=== PATIENT | male | born 1945 | race Caucasian/White ===

== ENCOUNTER 2016-07-13 13:42 | Inpatient (IN) | payer MEDICARE, OTHER ==
[2016-07-13] MEDS ORDERED: NS 0.9% 1000 ML* 1,000 ML IV ONE (14:16)
[2016-07-13 14:27] LABS: Hematocrit 40 % (42-52); Hemoglobin 12.9 g/dl (14.0-18.0); Mean Corpuscular HGB Conc 33 g/dl (31-36); Mean Corpuscular Hemoglobin 29 pg (27-31); Mean Corpuscular Volume 89 fL (80-94); Mean Platelet Volume 7 um3 (7.4-10.4); Red Blood Count 4.43 10^6/ul (4.0-5.4); Red Cell Distribution Width 14 % (10.5-15); White Blood Count 19.9 10^3/ul (3.5-10.8)
[2016-07-13 14:44] LABS: ALT 15 U/L (7-52); Albumin 3.4 g/dL (3.2-5.2); Alkaline Phosphatase 64 U/L (34-104); BUN/Creatinine Ratio 22.2 (8-20); Blood Urea Nitrogen 32 mg/dL (6-24); CO2 Carbon Dioxide 22 mmol/L (22-32); Calcium 8.7 mg/dL (8.6-10.3); Chloride 101 mmol/L (101-111); EGFR African American 62.2 (>60); EGFR Non-African American 48.4 (>60); Globulin 3.3 g/dL (2-4); Glucose 140 mg/dL (70-100); Lipase 13 U/L (11.0-82.0); Sodium 129 mmol/L (133-145); Total Protein 6.7 g/dL (6.4-8.9)
[2016-07-13] MEDS ORDERED: Ciprofloxacin 400MG IVPREMIX(* 400 MG/200 ML BAG IVPB ONE (15:01)
--- NOTE | 2016-07-13 15:02 | RAD ---
Indication: Weakness. Exposure to illness at living facility. Cardiovascular disease. Comparison: June 06, 2015 Technique: Upright AP 1435 hours Report: Clear lungs and pleural spaces. The heart, pulmonary vasculature, and mediastinal contours are unremarkable. Unremarkable osseous structures and soft tissue contours. IMPRESSION: No evidence for pneumonia. No evidence for acute intrathoracic disease.
--- NOTE | 2016-07-13 15:03 | ED ---
Paul Rae Matthew, scribed for Ezekiel Aguirre MD on 07/13/16 at 1413 . GI/ HPI - HPI Summary HPI Summary: A 71 y/o male presents to the ED by EMS from [facility] with constant nausea and vomiting (x1 today) since two days ago. Associated symptoms include dizziness - since resolved, diarrhea, shakiness, and generalized weakness. The patient denies fever. He states that a person at his dinning table vomitied a few days ago. He has a Hx of MS, which results in left leg loss of sensation. Denies trouble feeling pain anywhere other than the left leg. The patient uses a walker; however, the patient was too weak to walk today. His MS has not worsened today. - History of Current Complaint Chief Complaint: EDNauseaVomitDiarrh Time Seen by Provider: 07/13/16 13:52 Stated Complaint: WEAKNESS Hx Obtained From: Patient Onset/Duration: Started Days Ago, Atraumatic, Still Present Timing: Constant Severity: Moderate Current Severity: Moderate Associated Signs and Symptoms: Positive: Dizziness, Weakness - generalized, Nausea, Vomiting, Diarrhea. Negative: Fever - Allergy/Home Medications Allergies/Adverse Reactions: Allergies Allergy/AdvReac Type Severity Reaction Status Date / Time No Known Allergies Allergy Verified 01/16/15 17:02 PMH/Surg Hx/FS Hx/Imm Hx Endocrine/Hematology History: Reports: Hx Thyroid Disease Denies: Hx Anticoagulant Therapy, Hx Diabetes Cardiovascular History: Reports: Hx Hypertension, Other Cardiovascular Problems/ Disorders - current c/o heartburn Denies: Hx Congestive Heart Failure, Hx Pacemaker/ICD Respiratory History: Denies: Hx Asthma, Hx Chronic Obstructive Pulmonary Disease (COPD), Other Respiratory Problems/Disorders GI History: Reports: Hx Gastroesophageal Reflux Disease Denies: Hx Ulcer, Other GI Disorders - DENIES History: Reports: Hx Benign Prostatic Hyperplasia, Other Problems/ Disorders - blood in urine Denies: Hx Renal Disease Musculoskeletal History: Reports: Hx Arthritis, Other Musculoskeletal History - Multiple Sclerosis Sensory History: Reports: Hx Contacts or Glasses Opthamlomology History: Reports: Hx Contacts or Glasses Neurological History: Reports: Hx Dementia, Other Neuro Impairments/Disorders - Multiple sclerosis - Immunization History Date of Tetanus Vaccine: <10yrs Date of Influenza Vaccine: 2014 Infectious Disease History: No Infectious Disease History: Denies: Hx Clostridium Difficile, Hx Hepatitis, Hx Human Immunodeficiency Virus (HIV), Hx of Known/Suspected MRSA, Traveled Outside the [place] in Last 30 Days - Family History Known Family History: Negative: Cardiac Disease, Hypertension, Diabetes - Social History Alcohol Use: None Substance Use Type: Reports: None Smoking Status (MU): Never Smoked Tobacco Review of Systems Constitutional: Negative Negative: Fever Eyes: Negative ENT: Negative Cardiovascular: Negative Respiratory: Negative Positive: Vomiting, Diarrhea, Nausea Genitourinary: Negative Musculoskeletal: Negative Skin: Negative Neurological: Other - Dizziness Positive: Weakness - generalized Psychological: Normal All Other Systems Reviewed And Are Negative: Yes Physical Exam Triage Information Reviewed: Yes Vital Signs On Initial Exam: Initial Vitals Temp Pulse Resp BP Pulse Ox 97.8 F 108 16 86/65 97 07/13/16 13:43 07/13/16 13:43 07/13/16 13:43 07/13/16 13:43 07/13/16 13:43 Vital Signs Reviewed: Yes Appearance: Positive: Well-Appearing, No Pain Distress Skin: Positive: Warm, Skin Color Reflects Adequate Perfusion Head/Face: Positive: Normal Head/Face Inspection Eyes: Positive: Normal, EOMI ENT: Positive: Other - mucous membranes are dry Neck: Positive: Supple Respiratory/Lung Sounds: Positive: Clear to Auscultation, Breath Sounds Present , Decreased Breath Sounds Cardiovascular: Positive: Normal, RRR. Negative: Murmur Abdomen Description: Positive: Nontender Musculoskeletal: Positive: Normal, Strength/ROM Intact Neurological: Positive: Alert, Oriented to Person Place, Time, Other - left leg weak which is chronic for him with his MS Psychiatric: Positive: Normal - Trent Coma Scale Coma Scale Total: 15 Diagnostics - Vital Signs Vital Signs Temp Pulse Resp BP Pulse Ox 07/13/16 13:43 97.8 F 108 16 86/65 97 - Laboratory Result Diagrams: 07/13/16 14:20 07/13/16 14:20 Lab Statement: Any lab studies that have been ordered have been reviewed, and results considered in the medical decision making process. - Radiology chest xray NAD Xray Interpretation: No Acute Changes Radiology Interpretation Completed By: ED Physician - EKG 14:27 Cardiac Rate: Tachycardia - 100 EKG Rhythm: Sinus Tachycardia EKG Interpretation: Diffus ST elevations EKG Comparison: No Significant Change - 09/20/2014 GIGU Course/Dx - Course Course Of Treatment: 71 yr old with MS, and NVD today with ill exposure to other residents at the place he lives. UTI, - Diagnoses Provider Diagnoses: UTI (urinary tract infection), Vomiting and diarrhea - Physician Notifications Discussed Care Of Patient With: Dr Perez Roldan Instructed by Provider To: Admit As Inpatient Discharge - Discharge Plan Condition: Good Disposition: ADMITTED TO [facility] The documentation as recorded by the Paul hodges Matthew accurately reflects the service I personally performed and the decisions made by , Ezekiel Aguirre MD.
[2016-07-13 15:32] LABS: Magnesium 1.6 mg/dL (1.9-2.7)
[2016-07-13] MEDS ORDERED: Magnesium Sulfate 2 GM IV* 2 GM/50 ML BAG IVPB ONE (17:00)
[2016-07-13] MEDS ORDERED: NS 0.9% 1000 ML* 1,000 ML IV SCH (17:30)
[2016-07-13] MEDS ORDERED: Ondansetron INJ* 2 MG/ML VIAL IV PRN (18:02)
[2016-07-13] MEDS: NS 0.9% 1000 ML* 1,000 ML IV SCH (18:06)
[2016-07-13] MEDS ORDERED: diPHENhydraMINE PO* 25 MG PO PRN (19:08)
[2016-07-13] MEDS ORDERED: Magnesium Hydroxide LIQ* 30 ML UDC PO PRN (19:08)
[2016-07-13] MEDS ORDERED: Acetaminophen TAB* 325 MG PO PRN (19:08)
[2016-07-13] MEDS ORDERED: Cyclobenzaprine TAB* 10 MG PO PRN (19:08)
[2016-07-13] MEDS: Heparin VIAL(*) 5000 UNITS/ML VIAL (FIVE THOUSAND) SUBCUT SCH (21:42)
--- NOTE | 2016-07-14 00:06 | HP ---
HISTORY AND PHYSICAL: DATE OF ADMISSION: 07/13/16 PRIMARY CARE PROVIDER: Dr. Mathias. NEUROLOGIST: Dr. Mcconnell. CHIEF COMPLAINT: Nausea, vomiting, and dizziness. HISTORY OF PRESENT ILLNESS: Mr. Pimentel is a 71-year-old male who states that just a short period of time prior to presenting to the emergency room, he began to have profuse vomiting. The patient states that it was almost continuous vomiting and because of this, he presented to the ER. The patient felt nauseous with this. He, however, did not have any abdominal pain. He denied any diarrhea, but states in the ambulance on the way over to [facility], he had a solid bowel movement. The patient does note that immediately following the vomiting, he felt somewhat dizzy. Currently, the nausea, vomiting, and dizziness have completely resolved. The patient does state that he has a sick contact. His tablemate at [facility] had recent nausea and vomiting. The patient states that he fell hot earlier in the day, but denies any fevers, chills otherwise. He denies any anorexia. No chest pain, no palpitations, no edema. No cough, no shortness of breath. No hematochezia, no hematuria, no dysuria. He states that he has chronic left-sided weakness. No sudden changes in vision. No dysphagia. No joint pains or muscles pain out of the ordinary. No rashes. No anxiety or depression. PAST MEDICAL HISTORY: 1. Multiple sclerosis. 2. Hypertension. 3. BPH. 4. Hypothyroidism. PAST SURGICAL HISTORY: None. MEDICATIONS: Accurate list pending, faxed from [facility]. ALLERGIES: None. FAMILY HISTORY: Mom at the age of 82, he believes with dementia. Dad likely in his 70s, though cause of was unknown. SOCIAL HISTORY: The patient is a lifelong nonsmoker. He does not drink alcohol. 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 He is . He has 2 children. He currently indicates that his girlfriend, Alexus Fraser, would be his healthcare proxy. REVIEW OF SYSTEMS: As per HPI. PHYSICAL EXAMINATION GENERAL: The patient is a well-developed, elderly, thin male, sitting up in the bed, in no acute distress. VITAL SIGNS: Blood pressure 122/77, pulse 97, respirations 20, temp 98, O2 sat 100% on 2 L. HEENT: Pupils are equal. They are round. Extraocular muscles are intact. Oropharynx is clear. Oral mucosa is moist. There is no submandibular, cervical , or supraclavicular adenopathy. Thyroid is not enlarged. No thyroid nodules are noted. PULMONARY: Lungs are clear to auscultation bilaterally. CARDIAC: Normal S1, S2. Regular rate and rhythm. I do not appreciate any murmurs. There is no lower extremity edema. ABDOMEN: Bowel sounds present. Soft, nontender, nondistended. MUSCULOSKELETAL: There is no cyanosis or clubbing of the digits. SKIN: Warm and dry. There are no rashes. NEUROLOGIC: Cranial nerves II through XII are grossly intact. Sensation is intact to light touch throughout. Strength is 5/5 in the right upper extremity and right lower extremity, 4 to 4+/5 in the left upper and lower extremity. PSYCH: The patient is alert. He is oriented x3. Affect appears appropriate. DIAGNOSTIC STUDIES/LAB DATA: Sodium 129, potassium 3.8, chloride 101, CO2 22, BUN 32, creatinine 1.44, glucose 140, lactic acid 1.4, calcium 8.7, magnesium 1.6. Bilirubin 0.4, AST 15, ALT 15, alk phos 64. CRP 46.30. Albumin 3.4, lipase 13. INR 1.04. WBC 19.9, hemoglobin 12.9, hematocrit 40, platelets 259. Chest x-ray, no evidence for pneumonia. No evidence for acute intrathoracic disease. EKG reveals sinus tachycardia without any acute ST-T wave abnormalities. ASSESSMENT AND PLAN: Mr. Pimentel is a 71-year-old male with history of multiple sclerosis, hypertension, benign prostatic hypertrophy, who presents to the emergency room with sudden onset of nausea, vomiting, and dizziness and is being admitted for evaluation of such. 1. Nausea and vomiting. The patient's nausea and vomiting is likely viral gastroenteritis. At this point, his vomiting has completely resolved. He is interested in trying a regular diet. The patient will have Zofran available for nausea. I do not believe the patient needs any further workup for his nausea and vomiting at this point. We will monitor his symptoms and if he remains without any nausea or vomiting tomorrow, he can likely go back to [facility]. I also suspect the patient's elevated white blood cell count is related to the vomiting. A followup CBC will be obtained tomorrow morning. 2. Dizziness. I suspect this is related to the vomiting as well. He may be slightly dehydrated from this. The patient received normal saline in the emergency room and will continue on normal saline at 75 mL per hour. The patient currently is not feeling dizzy. We will monitor his symptoms. 3. Mild hyponatremia. The patient tends to run on the lower side. Again, likely related to volume depletion from the vomiting. He will be receiving normal saline. A followup BMP will be obtained tomorrow. 4. Elevated creatinine. The patient appears to have likely stage 3 chronic kidney disease. His creatinine is slightly higher than usual, though not in the range for acute kidney injury. He will receive normal saline at 75 mL per hour and a followup BMP tomorrow. 5. Hypertension. The patient's blood pressure was soft when he first presented to the emergency room. It is now normal. We will follow his blood pressures with the administration of IV fluid. 6. Multiple sclerosis. The patient states that he believes he takes his multiple sclerosis medication on Mondays. I am currently awaiting a medication list from [facility]. Once this is obtained, I will order his appropriate medications. 7. DVT prophylaxis. According to the Adult Thrombosis Prophylaxis Risk Factor Assessment Guide, the patient has a total risk factor score of 2 making him moderate risk. He will be placed on heparin 5000 units subcutaneous q.8 hours. 8. Code status is full. TIME SPENT: 65 minutes were spent admitting this patient. CC: Dr. Mathias; Dr. Mcconnell * [id number]/CPS #: [id number] MTDD
[2016-07-14] MEDS: Heparin VIAL(*) 5000 UNITS/ML VIAL (FIVE THOUSAND) SUBCUT SCH ×3 (05:18→21:20)
[2016-07-14 06:10] LABS: Hematocrit 36 % (42-52); Hemoglobin 11.8 g/dl (14.0-18.0); Mean Corpuscular HGB Conc 33 g/dl (31-36); Mean Corpuscular Hemoglobin 30 pg (27-31); Mean Corpuscular Volume 89 fL (80-94); Mean Platelet Volume 7 um3 (7.4-10.4); Red Cell Distribution Width 15 % (10.5-15); White Blood Count 15.1 10^3/ul (3.5-10.8)
[2016-07-14 06:22] LABS: BUN/Creatinine Ratio 20.5 (8-20); Calcium 8.6 mg/dL (8.6-10.3); EGFR African American 68.8 (>60); EGFR Non-African American 53.5 (>60); Potassium 3.9 mmol/L (3.5-5.0)
[2016-07-14] MEDS: NS 0.9% 1000 ML* 1,000 ML IV SCH (08:33)
[2016-07-14] MEDS: Aspirin Low Dose CHEW TAB* 81 MG PO SCH (08:36)
[2016-07-14] MEDS: Omeprazole CAP* 20 MG PO SCH (08:36)
[2016-07-14] MEDS: Tamsulosin CAP* 0.4 MG PO SCH (08:36)
[2016-07-14] MEDS: Thyroid TAB* 60 MG PO SCH (08:36)
[2016-07-14] MEDS: Sulfamethox/Trimethoprim DS 800/160* TAB PO SCH (08:36)
[2016-07-14] MEDS: Multivitamins/Minerals TAB PO SCH (08:36)
[2016-07-14] MEDS: Potassium Chlor TAB* 10 MEQ TAB.ER PO SCH (08:36)
[2016-07-14] MEDS: Finasteride TAB* 5 MG PO SCH (08:36)
--- NOTE | 2016-07-14 17:35 | PN ---
Subjective Date of Service: 07/14/16 Interval History: Pt is feeling ok. No further N/V. This AM he had an episode of blurry vision out of the L eye. This resolved quickly. Objective Active Medications: Acetaminophen (Tylenol Tab*) 650 mg PO Q4H PRN PRN Reason: PAIN Aspirin (Aspirin Low Dose Tab*) 81 mg PO DAILY [facility] Last Admin: 07/14/16 08:36 Dose: 81 mg Cyclobenzaprine HCl (Flexeril Tab*) 10 mg PO TID PRN PRN Reason: SPASMS Diphenhydramine HCl (Benadryl Po*) 25 mg PO Q6H PRN PRN Reason: RASH Finasteride (Proscar Tab*) 5 mg PO DAILY [facility] Last Admin: 07/14/16 08:36 Dose: 5 mg Heparin Sodium (Porcine) (Heparin Vial(*)) 5,000 units SUBCUT Q8HR [facility] Last Admin: 07/14/16 14:52 Dose: 5,000 units Magnesium Hydroxide (Milk Of Magnesia Liq*) 30 ml PO DAILY PRN PRN Reason: CONSTIPATION Multivitamins/Minerals (Theragran/Minerals Tab*) 1 tab PO DAILY [facility] Last Admin: 07/14/16 08:36 Dose: 1 tab Omeprazole (Prilosec Cap*) 40 mg PO DAILY [facility] Last Admin: 07/14/16 08:36 Dose: 40 mg Ondansetron HCl (Zofran Inj*) 4 mg IV Q6H PRN PRN Reason: NAUSEA Potassium Chloride (Klor Con Er Tab*) 10 meq PO DAILY [facility] Last Admin: 07/14/16 08:36 Dose: 10 meq Tamsulosin HCl (Flomax Cap*) 0.8 mg PO DAILY [facility] Last Admin: 07/14/16 08:36 Dose: 0.8 mg Thyroid (Thyroid Tab*) 60 mg PO DAILY [facility] Last Admin: 07/14/16 08:36 Dose: 60 mg Trimethoprim/Sulfamethoxazole (Bactrim Ds 800/160 Tab*) 1 tab PO DAILY [facility] Last Admin: 07/14/16 08:36 Dose: 1 tab Vital Signs 07/13/16 07/13/16 07/13/16 18:10 19:31 20:00 Temperature 98.3 F Pulse Rate 97 Respiratory 20 16 16 Rate Blood Pressure 113/58 (mmHg) O2 Sat by Pulse 100 Oximetry 07/14/16 07/14/16 07/14/16 00:20 02:53 07:40 Temperature 98.3 F 97.9 F 98.1 F Pulse Rate 96 99 99 Respiratory 15 16 20 Rate Blood Pressure 106/58 103/53 105/53 (mmHg) O2 Sat by Pulse 98 98 98 Oximetry 07/14/16 07/14/16 07/14/16 08:00 13:03 16:37 Temperature 99.1 F 98.5 F Pulse Rate 105 105 Respiratory 20 16 16 Rate Blood Pressure 101/57 110/57 (mmHg) O2 Sat by Pulse 98 97 Oximetry Oxygen Devices in Use Now: None Appearance: Elderly male sitting up in bed, NAD Eyes: No Scleral Icterus Ears/Nose/Mouth/Throat: Mucous Membranes Moist Respiratory: Symmetrical Chest Expansion and Respiratory Effort, Clear to Auscultation Cardiovascular: NL Sounds; No Murmurs; No JVD, RRR, No Edema Abdominal: NL Sounds; No Tenderness; No Distention Extremities: No Clubbing, Cyanosis Skin: No Rash or Ulcers, No Nodules or Sclerosis Neurological: Alert and Oriented x 3 Result Diagrams: 07/14/16 05:50 07/14/16 05:50 Microbiology and Other Data: Microbiology 07/13/16 15:22 Aerobic Blood Culture - Preliminary Blood Venous No Growth Day 1 Anaerobic Blood Culture - Preliminary No Growth Day 1 07/13/16 17:20 Nasal Screen MRSA (PCR)([facility]) - Final Nasal Mrsa Negative Assess/Plan/Problems-Billing Mr Pimentel is a 71 yo M who has a h/o multiple sclerosis, HTN, hypothyroidism and BPH who presented to the ER with c/o nausea and vomiting. - Patient Problems (1) Nausea & vomiting Current Visit: Yes Status: Acute Onset Date: 09/20/14 Code(s): R11.2 - NAUSEA WITH VOMITING, UNSPECIFIED SNOMED Code(s): 31307282 Comment: Resolved shortly after admission. Likely viral gastroenteritis. Monitor for symptoms. (2) Leukocytosis Current Visit: Yes Status: Acute Onset Date: 09/20/14 Code(s): D72.829 - ELEVATED WHITE BLOOD CELL COUNT, UNSPECIFIED SNOMED Code(s): 476640643 Comment: Improving but still elevated today. Will plan on following up WBC count tomorrow AM. Hold on Abx. (3) Multiple sclerosis Current Visit: Yes Status: Acute Code(s): G35 - MULTIPLE SCLEROSIS SNOMED Code(s): 18056262 Comment: Continue home medication regimen. (4) HTN (hypertension) Current Visit: Yes Status: Acute Code(s): I10 - ESSENTIAL (PRIMARY) HYPERTENSION SNOMED Code(s): 76110254 Comment: BP is well controlled-not on antihypertensives. (5) Hypothyroid Current Visit: Yes Status: Acute Code(s): E03.9 - HYPOTHYROIDISM, UNSPECIFIED SNOMED Code(s): 90630073 Comment: Continue current dose of armour thyroid. (6) BPH (benign prostatic hyperplasia) Current Visit: Yes Status: Acute Code(s): N40.0 - BENIGN PROSTATIC HYPERPLASIA WITHOUT LOWER URINRY TRACT SYMP SNOMED Code(s): 195815766 Comment: Continue home medication regimen. (7) DVT prophylaxis Current Visit: Yes Status: Acute Code(s): KTJ8379 - SNOMED Code(s): 341394436 Comment: SQ heparin (8) Full code status Current Visit: Yes Status: Acute Onset Date: 09/20/14 Code(s): Z78.9 - OTHER SPECIFIED HEALTH STATUS SNOMED Code(s): 523503142
[2016-07-15] MEDS: Heparin VIAL(*) 5000 UNITS/ML VIAL (FIVE THOUSAND) SUBCUT SCH ×2 (06:06→13:57)
[2016-07-15 06:11] LABS: Hematocrit 35 % (42-52); Hemoglobin 11.5 g/dl (14.0-18.0); Mean Corpuscular HGB Conc 33 g/dl (31-36); Mean Corpuscular Hemoglobin 29 pg (27-31); Mean Corpuscular Volume 89 fL (80-94); Mean Platelet Volume 7 um3 (7.4-10.4); Red Blood Count 3.92 10^6/ul (4.0-5.4); Red Cell Distribution Width 14 % (10.5-15); White Blood Count 12.4 10^3/ul (3.5-10.8)
[2016-07-15 06:12] LABS: Add Diff/Slide Review? Slide Review Added
[2016-07-15 06:24] LABS: BUN/Creatinine Ratio 20.9 (8-20); Calcium 8.5 mg/dL (8.6-10.3); EGFR African American 70.6 (>60); EGFR Non-African American 54.9 (>60); Potassium 3.5 mmol/L (3.5-5.0)
[2016-07-15 07:47] VITALS: BP 133/64
[2016-07-15] MEDS: Omeprazole CAP* 20 MG PO SCH (08:45)
[2016-07-15] MEDS: Tamsulosin CAP* 0.4 MG PO SCH (08:46)
[2016-07-15] MEDS: Sulfamethox/Trimethoprim DS 800/160* TAB PO SCH (08:46)
[2016-07-15] MEDS: Finasteride TAB* 5 MG PO SCH (08:46)
[2016-07-15] MEDS: Aspirin Low Dose CHEW TAB* 81 MG PO SCH (08:46)
[2016-07-15] MEDS: Multivitamins/Minerals TAB PO SCH (08:46)
[2016-07-15] MEDS: Thyroid TAB* 60 MG PO SCH (08:46)
[2016-07-15] MEDS: Potassium Chlor TAB* 10 MEQ TAB.ER PO SCH (08:46)
--- NOTE | 2016-07-15 13:30 | PN ---
Subjective Date of Service: 07/15/16 Interval History: Pt is feeling well. No N/V/D. He has not done any walking around yet. Tolerating regular food. Objective Active Medications: Acetaminophen (Tylenol Tab*) 650 mg PO Q4H PRN PRN Reason: PAIN Last Admin: 07/15/16 08:46 Dose: 650 mg Aspirin (Aspirin Low Dose Tab*) 81 mg PO DAILY [facility] Last Admin: 07/15/16 08:46 Dose: 81 mg Cyclobenzaprine HCl (Flexeril Tab*) 10 mg PO TID PRN PRN Reason: SPASMS Diphenhydramine HCl (Benadryl Po*) 25 mg PO Q6H PRN PRN Reason: RASH Finasteride (Proscar Tab*) 5 mg PO DAILY [facility] Last Admin: 07/15/16 08:46 Dose: 5 mg Heparin Sodium (Porcine) (Heparin Vial(*)) 5,000 units SUBCUT Q8HR [facility] Last Admin: 07/15/16 06:06 Dose: 5,000 units Magnesium Hydroxide (Milk Of Qwite Liq*) 30 ml PO DAILY PRN PRN Reason: CONSTIPATION Multivitamins/Minerals (Theragran/Minerals Tab*) 1 tab PO DAILY [facility] Last Admin: 07/15/16 08:46 Dose: 1 tab Omeprazole (Prilosec Cap*) 40 mg PO DAILY [facility] Last Admin: 07/15/16 08:45 Dose: 40 mg Ondansetron HCl (Zofran Inj*) 4 mg IV Q6H PRN PRN Reason: NAUSEA Potassium Chloride (Klor Con Er Tab*) 10 meq PO DAILY [facility] Last Admin: 07/15/16 08:46 Dose: 10 meq Tamsulosin HCl (Flomax Cap*) 0.8 mg PO DAILY [facility] Last Admin: 07/15/16 08:46 Dose: 0.8 mg Thyroid (Thyroid Tab*) 60 mg PO DAILY [facility] Last Admin: 07/15/16 08:46 Dose: 60 mg Trimethoprim/Sulfamethoxazole (Bactrim Ds 800/160 Tab*) 1 tab PO DAILY [facility] Last Admin: 07/15/16 08:46 Dose: 1 tab Vital Signs 07/14/16 07/14/16 07/14/16 16:37 20:00 22:12 Temperature 98.5 F 99.6 F Pulse Rate 105 109 Respiratory 16 16 16 Rate Blood Pressure 110/57 119/56 (mmHg) O2 Sat by Pulse 97 97 Oximetry 07/14/16 07/15/16 07/15/16 23:17 07:46 10:37 Temperature 99.5 F 97.8 F Pulse Rate 101 91 Respiratory 16 16 20 Rate Blood Pressure 108/56 133/64 (mmHg) O2 Sat by Pulse 97 98 Oximetry 07/15/16 12:06 Temperature Pulse Rate Respiratory Rate Blood Pressure (mmHg) O2 Sat by Pulse 94 Oximetry Oxygen Devices in Use Now: None Appearance: Elderly male sitting up in bed, NAD Eyes: No Scleral Icterus Ears/Nose/Mouth/Throat: Mucous Membranes Moist Respiratory: Symmetrical Chest Expansion and Respiratory Effort, Clear to Auscultation Cardiovascular: NL Sounds; No Murmurs; No JVD, RRR, No Edema Abdominal: NL Sounds; No Tenderness; No Distention Extremities: No Clubbing, Cyanosis Skin: No Rash or Ulcers, No Nodules or Sclerosis Neurological: Alert and Oriented x 3 Result Diagrams: 07/15/16 05:31 07/15/16 05:31 Microbiology and Other Data: Microbiology 07/13/16 15:22 Aerobic Blood Culture - Preliminary Blood Venous No Growth Day 1 Anaerobic Blood Culture - Preliminary No Growth Day 1 07/13/16 17:20 Nasal Screen MRSA (PCR)([facility]) - Final Nasal Mrsa Negative Assess/Plan/Problems-Billing Mr Pimentel is a 71 yo M who has a h/o multiple sclerosis, HTN, hypothyroidism and BPH who presented to the ER with c/o nausea and vomiting. - Patient Problems (1) Nausea & vomiting Current Visit: Yes Status: Acute Onset Date: 09/20/14 Code(s): R11.2 - NAUSEA WITH VOMITING, UNSPECIFIED SNOMED Code(s): 18012453 Comment: Resolved shortly after admission. Likely viral gastroenteritis. No further symptoms. (2) Leukocytosis Current Visit: Yes Status: Acute Onset Date: 09/20/14 Code(s): D72.829 - ELEVATED WHITE BLOOD CELL COUNT, UNSPECIFIED SNOMED Code(s): 453028626 Comment: Improving but still elevated today. No need for Abx at this time. (3) Multiple sclerosis Current Visit: Yes Status: Acute Code(s): G35 - MULTIPLE SCLEROSIS SNOMED Code(s): 27235646 Comment: Continue home medication regimen. (4) HTN (hypertension) Current Visit: Yes Status: Acute Code(s): I10 - ESSENTIAL (PRIMARY) HYPERTENSION SNOMED Code(s): 14652915 Comment: BP is well controlled-not on antihypertensives. (5) Hypothyroid Current Visit: Yes Status: Acute Code(s): E03.9 - HYPOTHYROIDISM, UNSPECIFIED SNOMED Code(s): 05110619 Comment: Continue current dose of armour thyroid. (6) BPH (benign prostatic hyperplasia) Current Visit: Yes Status: Acute Code(s): N40.0 - BENIGN PROSTATIC HYPERPLASIA WITHOUT LOWER URINRY TRACT SYMP SNOMED Code(s): 203762413 Comment: Continue home medication regimen. (7) DVT prophylaxis Current Visit: Yes Status: Acute Code(s): JAS7811 - SNOMED Code(s): 145266870 Comment: SQ heparin (8) Full code status Current Visit: Yes Status: Acute Onset Date: 09/20/14 Code(s): Z78.9 - OTHER SPECIFIED HEALTH STATUS SNOMED Code(s): 915247514 Status and Disposition: d/c home
--- NOTE | 2016-07-16 08:11 | DS ---
DISCHARGE SUMMARY: DATE OF ADMISSION: 07/13/16 DATE OF DISCHARGE: 07/15/16 PRIMARY CARE PROVIDER: Dr. Mathias NEUROLOGIST: Dr. Mcconnell PRINCIPAL DIAGNOSIS: 1. Viral gastroenteritis. 2. Leukocytosis, improving. SECONDARY DIAGNOSES: 1. Multiple sclerosis. 2. BPH. 3. Hypertension. 4. Hypothyroidism. DISCHARGE MEDICATIONS: 1. Benadryl 25 mg p.o. every 6 hours p.r.n. rash/itching. 2. Ibuprofen 400 mg p.o. every 6 hours p.r.n. pain. 3. Tylenol 650 mg p.o. every 4 hours p.r.n. pain. 4. Systane eye drops one drop to both eyes every 2 hours p.r.n. dryness. 5. Flexeril 10 mg p.o. t.i.d. p.r.n. spasm. 6. Propylene glycol 1 drop to both eyes every 2 hours p.r.n. dryness. 7. Milk of magnesia 30 ml p.o. daily p.r.n. constipation. 8. Potassium chloride 10 mEq p.o. daily. 9. Flomax 0.8 mg p.o. daily. 10. Bactrim DS 1 tablet p.o. daily. 11. [place] Thyroid 60 mg p.o. daily. 12. Spironolactone/hydrochlorothiazide 25/25 1 tablet p.o. daily. 13. Omeprazole 40 mg p.o. daily. 14. Finasteride 5 mg p.o. daily. 15. Aspirin 81 mg p.o. daily. 16. Multivitamin 1 tablet p.o. daily. 17. Interferon beta 30 micrograms IM every Friday. HOSPITAL COURSE: Mr. Pimentel is a 71-year-old male with history of multiple sclerosis, who on the date of admission suddenly started having profuse vomiting that would not stop. The patient presented to the emergency room for this. In the ER the patient was found to have an elevated white blood cell count of 19.9 thousand. Additionally, his CRP was elevated at 46.3. His sodium was slightly low 129. The patient was admitted for evaluation of his nausea and vomiting. By the time of his admission, the patient's nausea and vomiting had completely resolved. The decision was made to keep the patient in the hospital to monitor for further symptoms. Additionally, I wished to followup his leukocytosis. The etiology behind this I felt was secondary to viral gastroenteritis; however, this did not resolve completely by the time of discharge. It has, however, trended down to 12.4 thousand without antibiotic therapy. The patient did have low grade temp on the evening of 07/14/16, but otherwise has been feeling incredibly well. He has been eating a regular diet. At this point, it is felt that the patient is stable for discharge home. FOLLOWUP CONCERNS: The patient is being discharged to home today, 07/15/16. He is to follow up with Dr. Mathias in the next 4 to 7 days. He will be contacted by his primary care provider's office with an appointment date and time. ACTIVITY LEVEL: Is as tolerated. DIET: Regular as tolerated. CONDITION ON DISCHARGE: Stable. TIME SPENT: 25 minutes were spent discharging this patient. CC: Dr. Mathias * [id number]/CPS #: [id number]
== END 2016-07-15 17:00 | DRG 392 ==
LOC: ED 13:42 → MED 15:11
PROVIDERS: ADMIT Hospitalist; ATTEND Hospitalist
DX: A08.4 Viral intestinal infection, unspecified (principal); G35 Multiple sclerosis; E87.1 Hypo-osmolality and hyponatremia; F03.90 Unspecified dementia, unspecified severity, without behavioral disturbance, psychotic disturbance, mood disturbance, and anxiety; I10 Essential (primary) hypertension; N40.0 Benign prostatic hyperplasia without lower urinary tract symptoms; E03.9 Hypothyroidism, unspecified; R94.4 Abnormal results of kidney function studies; M19.90 Unspecified osteoarthritis, unspecified site; H53.8 Other visual disturbances; Z79.82 Long term (current) use of aspirin; Z82.0 Family history of epilepsy and other diseases of the nervous system
CPT/HCPCS: 36415; 71010; 80048; 80053; 83605; 83690; 83735; 85025; 85610; 86140; 87040; 87641; 93005; 94760; A9270-GY; J0744; J1644; J3475

== ENCOUNTER 2018-01-01 12:49 | Emergency (ER) | payer MEDICARE, OTHER ==
--- NOTE | 2018-01-01 13:40 | ED ---
Upper Extremity Pain - HPI Summary HPI Summary: Patient is a 72-year-old male who presents emergency department for a right thumb injury that occurred yesterday. Patient resides at [place]. Patient states he was walking with his walker yesterday when he lost his balance and landed onto his right hand, and injuring his thumb. He denies prior chest pain , shortness of breath, lightheadedness or dizziness. Patient reportedly had x- rays to [place] and has a thumb fracture. No other injuries were sustained. Symptoms are mild in severity. Touching and moving thumb makes symptoms worse. Rest makes symptoms better. Is not anticoagulated. - History of Current Complaint Chief Complaint: EDExtremityUpper Stated Complaint: FALL/RT THUMB INJURY Time Seen by Provider: 01/01/18 13:24 Hx Obtained From: Patient - Allergies/Home Medications Allergies/Adverse Reactions: Allergies Allergy/AdvReac Type Severity Reaction Status Date / Time No Known Allergies Allergy Verified 01/01/18 13:09 PMH/Surg Hx/FS Hx/Imm Hx Previously Healthy: Yes Endocrine/Hematology History: Reports: Hx Thyroid Disease Denies: Hx Anticoagulant Therapy, Hx Diabetes Cardiovascular History: Reports: Hx Hypertension, Other Cardiovascular Problems/ Disorders - current c/o heartburn Denies: Hx Congestive Heart Failure, Hx Pacemaker/ICD Respiratory History: Denies: Hx Asthma, Hx Chronic Obstructive Pulmonary Disease (COPD), Other Respiratory Problems/Disorders GI History: Reports: Hx Gastroesophageal Reflux Disease Denies: Hx Ulcer, Other GI Disorders - DENIES History: Reports: Hx Benign Prostatic Hyperplasia, Other Problems/ Disorders - blood in urine Denies: Hx Renal Disease Musculoskeletal History: Reports: Hx Arthritis, Other Musculoskeletal History - Multiple Sclerosis Sensory History: Reports: Hx Contacts or Glasses Opthamlomology History: Reports: Hx Contacts or Glasses Neurological History: Reports: Hx Dementia, Other Neuro Impairments/Disorders - Multiple sclerosis - Immunization History Date of Tetanus Vaccine: <10yrs Date of Influenza Vaccine: 2014 Infectious Disease History: No Infectious Disease History: Denies: Hx Clostridium Difficile, Hx Hepatitis, Hx Human Immunodeficiency Virus (HIV), Hx of Known/Suspected MRSA, Traveled Outside the [place] in Last 30 Days - Family History Known Family History: Negative: Cardiac Disease, Hypertension, Diabetes - Social History Occupation: Retired Lives: [facility] Alcohol Use: None Substance Use Type: Reports: None Smoking Status (MU): Never Smoked Tobacco Review of Systems Positive: Other - Right thumb injury All Other Systems Reviewed And Are Negative: Yes Physical Exam Triage Information Reviewed: Yes Vital Signs On Initial Exam: Initial Vitals Temp Pulse Resp BP Pulse Ox 97.8 F 94 18 127/80 96 01/01/18 13:05 01/01/18 13:05 01/01/18 13:05 01/01/18 13:05 01/01/18 13:05 Vital Signs Reviewed: Yes Appearance: Positive: Well-Appearing - Pt. sitting up in bed in NAD. Skin: Positive: Warm, Dry Head/Face: Positive: Normal Head/Face Inspection Eyes: Positive: Normal Neck: Positive: Supple Musculoskeletal: Positive: Other - Ecchymosis and pain noted diffusely to the righ thumb extending down hand. Small subungal hematoma noted. No palpable wrist pain. No breaks in skin. Neurological: Positive: Normal, CN Intact II-III Psychiatric: Positive: Affect/Mood Appropriate Procedures - Splinting Right Upper Extremity Location: Right thumb Splint: thumb spica Pre-Proc Neuro Vasc Exam: normal Post-Proc Neuro Vasc Exam: normal Diagnostics - Vital Signs Vital Signs Temp Pulse Resp BP Pulse Ox 01/01/18 13:05 97.8 F 94 18 127/80 96 - Laboratory Lab Statement: Any lab studies that have been ordered have been reviewed, and results considered in the medical decision making process. Course/Dx - Course Course Of Treatment: Patient presenting for isolated thumb fracture. X-ray shows a transverse fracture through the distal thumb, reading per radiology. Thumb spica splint was placed. Advised patient to call orthopedics tomorrow to schedule follow-up appointment. To ice and elevate. Tylenol for pain as directed. Patient understands and agrees plan. - Diagnoses Differential Diagnosis/HQI/PQRI: Positive: Contusion, Fracture (Closed), Strain , Sprain Provider Diagnoses: Thumb fracture Discharge - Sign-Out/Discharge Documenting (check all that apply): Patient Departure - Discharge Plan Condition: Good Disposition: HOME Patient Education Materials: Thumb Fracture (ED) Referrals: Mack Mathias MD [Primary Care Provider] - Efrain Car MD [Medical Doctor] - Additional Instructions: Call Dr. Car's office today to schedule an appointment Keep splint in place Ice and elevate Tylenol for pain as directed - Billing Disposition and Condition Condition: GOOD Disposition: Home
--- NOTE | 2018-01-01 14:24 | RAD ---
INDICATION: Right hand pain COMPARISON: None TECHNIQUE: AP, lateral, and oblique views were obtained. FINDINGS: There is osteopenia. There is a nondisplaced transverse fracture through the base of the distal phalanx of the thumb. No other fractures are evident. There is associated soft tissue swelling. IMPRESSION: FRACTURE DISTAL PHALANX OF THE RIGHT THUMB
[2018-01-01 15:28] VITALS: BP 125/69
== END 2018-01-01 15:27 | disposition home or self-care (01) ==
LOC: ED 12:49
DX: S62.524A Nondisplaced fracture of distal phalanx of right thumb, initial encounter for closed fracture (principal); W18.30XA Fall on same level, unspecified, initial encounter; Y93.01 Activity, walking, marching and hiking; Y92.129 Unspecified place in nursing home as the place of occurrence of the external cause
CPT/HCPCS: 99282

== ENCOUNTER 2018-01-10 00:05 | Emergency (ER) | payer MEDICARE, OTHER ==
[2018-01-10] MEDS ORDERED: hydrOXYzine HCL TAB* 25 MG PO ONE (03:44)
[2018-01-10] MEDS ORDERED: predniSONE TAB* 20 MG PO ONE (03:44)
[2018-01-10] MEDS ORDERED: Famotidine TAB* 20 MG PO ONE (03:45)
--- NOTE | 2018-01-10 04:29 | ED ---
Allergic Reaction/Systemic - HPI Summary HPI Summary: This is carroll Jennings documenting for attending Dr. Jemima Bradford MD. A 72 y/o male KARSTEN presents to ED c/o diffuse body rash. Currently, the patient is in no pain. As per triage, "pt lives at [place], has had generalized rash for 2 days, was given benadryl about 2 hours ago, has a little itchiness to top of head, no resp issues, denies known allergies, denies any new soap, food, etc ". According to the patient he has been experiences a diffuse body rash for 2 days. He noted that not everything on his body itches, except his chest slightly. No PMHx of eczema. No new medications. He noted that the staff gave him Benadryl. - History of Current Complaint Chief Complaint: EDAllergicReaction Time Seen by Provider: 01/10/18 03:35 Hx Obtained From: Patient Onset/Duration: Started days ago, Still Present Timing: Constant, Lasting Days Severity Currently: None Pain Intensity: 0 Pain Scale Used: 0-10 Numeric Location: Diffuse Character: Hives Aggravating Factor(s): Nothing Alleviating Factor(s): Nothing Associated Signs And Symptoms: Positive: Negative, Rash - Allergies/Home Medications Allergies/Adverse Reactions: Allergies Allergy/AdvReac Type Severity Reaction Status Date / Time No Known Allergies Allergy Verified 01/01/18 13:09 PMH/Surg Hx/FS Hx/Imm Hx Endocrine/Hematology History: Reports: Hx Thyroid Disease Denies: Hx Anticoagulant Therapy, Hx Diabetes Cardiovascular History: Reports: Hx Hypertension, Other Cardiovascular Problems/ Disorders - current c/o heartburn Denies: Hx Congestive Heart Failure, Hx Pacemaker/ICD Respiratory History: Denies: Hx Asthma, Hx Chronic Obstructive Pulmonary Disease (COPD), Other Respiratory Problems/Disorders GI History: Reports: Hx Gastroesophageal Reflux Disease Denies: Hx Ulcer, Other GI Disorders - DENIES History: Reports: Hx Benign Prostatic Hyperplasia, Other Problems/ Disorders - blood in urine Denies: Hx Renal Disease Musculoskeletal History: Reports: Hx Arthritis, Other Musculoskeletal History - Multiple Sclerosis Sensory History: Reports: Hx Contacts or Glasses Opthamlomology History: Reports: Hx Contacts or Glasses Neurological History: Reports: Hx Dementia, Other Neuro Impairments/Disorders - Multiple sclerosis - Immunization History Date of Tetanus Vaccine: <10yrs Date of Influenza Vaccine: 2014 Infectious Disease History: No Infectious Disease History: Denies: Hx Clostridium Difficile, Hx Hepatitis, Hx Human Immunodeficiency Virus (HIV), Hx of Known/Suspected MRSA, Traveled Outside the [place] in Last 30 Days - Family History Known Family History: Negative: Cardiac Disease, Hypertension, Diabetes - Social History Alcohol Use: None Substance Use Type: Reports: None Smoking Status (MU): Never Smoked Tobacco Review of Systems Negative: Fever Positive: Other - POSITIVE: Chest itch Positive: Rash - Diffuse All Other Systems Reviewed And Are Negative: Yes Physical Exam - Summary Physical Exam Summary: VITAL SIGNS: Reviewed. GENERAL: Patient is a well-developed and nourished male who is lying comfortable in the stretcher. Patient is not in any acute respiratory distress. HEAD AND FACE: No signs of trauma. No ecchymosis, hematomas or skull depressions. No sinus tenderness. EYES: PERRLA, EOMI x 2, No injected conjunctiva, no nystagmus. EARS: Hearing grossly intact. Ear canals and tympanic membranes are within normal limits. MOUTH: Oropharynx within normal limits. NECK: Supple, trachea is midline, no adenopathy, no JVD, no carotid bruit, no c- spine tenderness, neck with full ROM. CHEST: Symmetric, no tenderness at palpation LUNGS: Clear to auscultation bilaterally. No wheezing or crackles. CVS: Regular rate and rhythm, S1 and S2 present, no murmurs or gallops appreciated. ABDOMEN: Soft, non-tender. No signs of distention. No rebound no guarding, and no masses palpated. Bowel sounds are normal. EXTREMITIES: FROM in all major joints, no edema, no cyanosis or clubbing. NEURO: Alert and oriented x 3. No acute neurological deficits. Speech is normal and follows commands. SKIN: Diffuse macular rash on face chest and back. Looks very red. Triage Information Reviewed: Yes Vital Signs On Initial Exam: Initial Vitals Temp Pulse Resp BP Pulse Ox 99.0 F 96 20 131/88 97 01/10/18 00:22 01/10/18 00:22 01/10/18 00:22 01/10/18 00:22 01/10/18 00:22 Vital Signs Reviewed: Yes Diagnostics - Vital Signs Vital Signs Temp Pulse Resp BP Pulse Ox 01/10/18 02:12 98.9 F 87 16 122/70 100 01/10/18 00:22 99.0 F 96 20 131/88 97 - Laboratory Lab Statement: Any lab studies that have been ordered have been reviewed, and results considered in the medical decision making process. Allergic Reaction Course/Dx - Course Course Of Treatment: A 72 y/o male KARSTEN presents to ED c/o diffuse body rash. No laboratory scans were done. In the ED course, the patient recieved Pepcid, Atarax and Deltasone. Patient will be discharged with a diagnosis of allergic reaction. Patient is to follow up with PCP in 1-2 days. Patient is agreeable with this plan. - Diagnoses Provider Diagnoses: Allergic reaction Discharge - Sign-Out/Discharge Documenting (check all that apply): Patient Departure - DISCHARGE - Discharge Plan Condition: Stable Disposition: HOME Prescriptions: hydrOXYzine pamoate [Vistaril] 25 mg PO Q6H PRN #20 capsule PRN Reason: Itching predniSONE TAB* [Deltasone TAB*] 50 mg PO DAILY #7 tab Patient Education Materials: Food Allergy (ED), Allergies (ED) Referrals: Mack Mathias MD [Primary Care Provider] - 2 Days Additional Instructions: FOLLOW UP WITH PRIMARY CARE ON FRIDAY. RETURN TO ED FOR ANY NEW OR WORSENING SYMPTOMS.
[2018-01-10 05:39] VITALS: BP 116/82
== END 2018-01-10 06:00 | disposition home or self-care (01) ==
LOC: ED 00:05
DX: R21 Rash and other nonspecific skin eruption (principal); T78.40XA Allergy, unspecified, initial encounter; X58.XXXA Exposure to other specified factors, initial encounter; I10 Essential (primary) hypertension
CPT/HCPCS: 99284; A9270-GY; J7512

== ENCOUNTER 2020-02-02 09:36 | Observation (INO) ==
[~2020-02-02 09:36] MED LIST: Buffered Lidocaine 1% SYRIN 1 ml INTRADERM ONE; Lactated Ringers 1000 ml BAG 1,000 ML IV SCH
[2020-02-02] MEDS ORDERED: cefTRIAXone 2 GM ADDV.VIAL ONE (09:52)
[2020-02-02] MEDS ORDERED: Buffered Lidocaine 1% SYRIN 1 ml INTRADERM ONE (09:53)
[2020-02-02] MEDS ORDERED: Lidocaine 2% PF 5 ML VIAL ONE (10:43)
[2020-02-02] MEDS ORDERED: Rocuronium 50 mg VIAL 10 mg/ml 5 ml VIAL (50 mg) ONE (10:43)
[2020-02-02] MEDS ORDERED: Etomidate 20 mg/10 ml 2 MG/ML 10 ml VIAL ONE (10:43)
[2020-02-02] MEDS ORDERED: fentaNYL 100 mcg/2 ml 50 MCG/ML VIAL ONE (10:43)
[2020-02-02] MEDS ORDERED: Naloxone 0.4 mg VIAL 0.4 mg/ml 1 ml VIAL IV PRN (13:10)
[2020-02-02] MEDS ORDERED: fentaNYL 100 mcg/2 ml 50 MCG/ML VIAL IV PRN (13:10)
[2020-02-02] MEDS ORDERED: oxyCODONE/Acetamin 5/325 mg TAB PO PRN ×2 (14:26→14:47)
[2020-02-02] MEDS ORDERED: Lidocaine 2% JELLY 6 ML TOPICAL PRN (14:28)
[2020-02-02] MEDS: NS 0.9% 1000 ml BAG 1,000 ML IV SCH ×2 (14:44→21:29)
[2020-02-02] MEDS ORDERED: diPHENhydraMINE 25 mg TAB PO PRN (14:51)
[2020-02-02] MEDS ORDERED: Magnesium Hydroxide LIQ 30 ML UDC PO PRN (14:53)
[2020-02-02] MEDS ORDERED: Dextran 70/Hypromellose Tears Eye Drops 15 ml BTL (for Artificials Tears) BOTH EYES PRN (15:00)
[2020-02-02] MEDS ORDERED: Vitamin THERAPEUTIC TAB PO SCH (16:00)
[2020-02-02] MEDS: Potassium Chlor 10 meq TAB PO SCH (21:29)
[2020-02-03] MEDS: NS 0.9% 1000 ml BAG 1,000 ML IV SCH (04:15)
[2020-02-03] MEDS ORDERED: cefTRIAXone 1 gm/50 mL NS BAG 1 GM/50 ML BAG IVPB ONE (07:30)
[2020-02-03] MEDS ORDERED: Sulfamethox/Trimethoprim DS TAB 800/160 mg PO SCH (09:00)
[2020-02-03] MEDS: Potassium Chlor 10 meq TAB PO SCH (09:25)
[2020-02-03 11:38] VITALS: BP 109/49
[2020-02-08] MEDS ORDERED: INTERFERON BETA 30 MCG IM SCH (09:00)
[2020-02-08] MEDS ORDERED: [UNRECOGNIZED DRUG - OTHER] IM SCH (09:00)
== END 2020-02-03 15:00 ==
LOC: SSU 09:36 → OR 09:36
PROVIDERS: ADMIT Urology; ATTEND Urology